=== PATIENT | male | born 1995 | race Caucasian/White ===

== ENCOUNTER 2019-08-30 12:32 | Emergency (ER) | payer MEDICAID ==
[~2019-08-30] VITALS: Ht 175.3 cm; Wt 146.1 kg
[~2019-08-30 12:32] MED LIST: DOXYCYCLINE MO100 MG PO; GOOD SENSE ASP325 MG PO; KEFLEX250 MG PO; LAC PO; ZESTRIL5 MG PO
[2019-08-30 14:55] VITALS: Ht 175.3 cm; Wt 146.1 kg
--- NOTE | 2019-08-30 15:19 | NUR ---
PT IN ED FOR LOW BACK PAIN X1 WEEK; STS NO TRAUMA. PT AMBULATORY, NO DISTRESS. 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 PT AAO4, RESP E/U. FEMALE VISITOR AT BEDSIDE.
[2019-08-30 16:36] LABS: microscopic required? NO
[2019-08-30 16:43] LABS: urine erythrocyte NEGATIVE (NEGATIVE)
[2019-08-30 17:04] LABS: CALCIUM 8.9 mg/dL (8.5-10.1); CARBON DIOXIDE 29.6 mmol/L (21-32); CHLORIDE SERUM 101 mmol/L (98-107); GFR1 > 60 mL/min; GLUCOSE SERUM 92 mg/dL (74-106); POTASSIUM SERUM 4.1 mmol/L (3.5-5.1); SODIUM SERUM 136 mmol/L (136-145)
--- NOTE | 2019-08-30 17:05 | NUR ---
PT IN [facility] IN POSITION OF COMOFRT, FEMALE VISITOR REMAINS AT BEDSIDE.
--- NOTE | 2019-08-30 18:11 | NUR ---
PT STS HAVING PAIN; MADE AWARE.
[2019-08-30 19:01] LABS: BASOPHIL % 0.3 % (0-2)
[2019-08-30 19:03] LABS: PLATELET COUNT 125 x10^3mcL (130-400)
[2019-08-30 19:07] LABS: ALBUMIN 3.9 g/dL (3.4-5.0); BILIRUBIN DIRECT 0.37 mg/dL (0.0-0.2); BILIRUBIN TOTAL 1.9 mg/dL (0.20-1.00)
[2019-08-30 19:08] LABS: TOTAL PROTEIN, SERUM 8.6 g/dL (6.4-8.2)
--- NOTE | 2019-08-30 19:12 | NUR ---
REPORT GIVEN TO MARJ FELIPE TO ASSUME CARE.
--- NOTE | 2019-08-30 19:26 | NUR ---
PT A/O X4. RESP EVEN/UNLABORED. RESTING IN BED COMFORTABLY. DENIES PAIN/DISCOMFORT. ALL NEEDS MET AT THIS TIME.
--- NOTE | 2019-08-30 20:27 | NUR ---
PT TO BE ADMITTED HOWEVER HE LIVES IN [place] AND STATES HE HAS PLANS TO GO BACK [facility] AND EXPRESSED CONCERN ABOUT BEING ADMITTED LONGER THAN [facility]. ER MD MADE AWARE AND AT BEDSIDE WITH RN PRESENT TO DISCUSS RISK OF LEAVING [facility]. MD DISCUSSED RISKS THAT OF WORSENING INCLUDING AND PT STATED HE IS FULLY AWARE AND A CLEAR UNDERSTANDING AND HAS HAD TIME TO THINK ABOUT IT. HE STATES HE WAS JUST SEEN AT [facility] FOR SIMILAR THING AND FEELS SAFE TO LEAVE AND HAVE WORKUP DONE IN [place]. HE REQUESTS COPIES OF DIAGNOSTIC TESTS TO PROVODE HIS MD IN [place]. MD WILL PROVIDE THIS INFO TO HIM. AGAIN, PT STATES HE WISHES TO GO AMA RIGHT NOW.
[2019-08-30 20:46] VITALS: BP 133/60
== END 2019-08-30 20:46 | disposition left against medical advice (07) ==
LOC: ED 12:32 → MU 19:41 → ED 20:46
PROVIDERS: Emergency Medicine
DX: R10.32 Left lower quadrant pain (principal); R30.0 Dysuria; I10 Essential (primary) hypertension
CPT/HCPCS: 36415; J1885